=== PATIENT | female | born 1980 | race Caucasian/White ===

== ENCOUNTER 2018-11-21 09:40 | Day surgery (SDC) | payer MEDICAID ==
[~2018-11-21] VITALS: Ht 167.6 cm; Wt 63.5 kg
[~2018-11-21 09:40] MED LIST changes: +CEFOXITIN SODIUM 2 G in DEXT 5% WATER 100 ML IV STA; -DEXAMETHASONE 4MG/ML 1ML VIAL ONE; -FENTANYL CITRATE/PF 50MCG/ML 2ML VIAL ONE; -GLYCOPYRROLATE 0.2 MG/ML 2ML VIAL ONE; -HYDROMORPHONE HCL/PF 2MG/ML (OR) ONE; -KETOROLAC 30MG/ML VIAL ONE; +LACTATED RINGERS 1,000 ML IV SCH; -MIDAZOLAM HCL 2 MG/2 ML VIAL ONE; -ONDANSETRON HCL 4MG/2ML INJ ONE; -PROPOFOL 200MG/20ML VIAL IV ONE; -ROCURONIUM BROMIDE 10MG/ML VIAL 5ML IV ONE
[2018-11-21] MEDS ORDERED: LIDOCAINE HCL 1% 20ML VIAL (Pyxis) INJ ONE (10:25)
[2018-11-21] MEDS ORDERED: NORMAL SALINE 0.9% 10 ML SYR ONE (10:25)
[2018-11-21] MEDS ORDERED: BUPIVACAINE HCL/PF 0.5% (5MG/ML) 10ML ONE (10:25)
[2018-11-21] MEDS ORDERED: BACITRACIN 50,000 UNITS/VIAL ONE (10:26)
[2018-11-21 10:44] LABS: CLARITY URINE CLEAR (CLEAR); COLOR URINE YELLOW (YELLOW); KETONES URINE NEGATIVE (NEGATIVE); LEUKOCYTE ESTERASE URINE NEGATIVE (NEGATIVE); NITRITE URINE NEGATIVE (NEGATIVE); OCCULT BLOOD URINE NEGATIVE (NEGATIVE); PH URINE 7.5 (4.5-8.0); PROTEIN URINE NEGATIVE (NEGATIVE); SPECIFIC GRAVITY URINE 1.009 (1.005-1.030); UROBILINOGEN URINE 0.2 E.U./dL (0.2-1.0)
[2018-11-21 10:46] LABS: UCG SCREEN NEGATIVE
[2018-11-21 10:57] LABS: BASOPHILS % 0.3 % (0.0-2.0); EOSINOPHILS % 0.4 % (0.0-5.0); HEMATOCRIT. 37.7 % (36.0-48.0); HEMOGLOBIN. 12.4 g/dL (12.0-16.0); LYMPHOCYTES % 23.9 % (20.0-50.0); MEAN CORPUSCULAR HEMOGLOBIN 29.9 pg (28.0-32.0); MEAN CORPUSCULAR VOLUME 90.9 fL (81.0-99.0); MEAN PLATELET VOLUME 9.5 fl (7.4-10.4); MONOCYTES % 6.1 % (2.0-8.0); NEUTROPHILS % 69.3 % (40.0-76.0); PLATELET 251 x1000/uL (130-400); RED BLOOD CELL COUNT 4.14 mill/uL (4.2-5.4); RED CELL DISTRIBUTION WIDTH 15.6 % (11.6-14.6)
[2018-11-21 11:03] LABS: PARTIAL THROMBOPLASTIN TIME 26.6 sec (23.4-31.0); PROTHROMBIN TIME 10.3 sec (9.1-11.1)
[2018-11-21 11:05] LABS: CHLORIDE 107 mEq/L (98-107)
[2018-11-21] MEDS ORDERED: METHYLENE BLUE 50 MG/10 ML AMP IV ONE (12:48)
[2018-11-21] MEDS ORDERED: HYDROMORPHONE HCL/PF 2MG/ML CPJ IV PRN (13:00)
[2018-11-21] MEDS ORDERED: ONDANSETRON HCL 4MG/2ML INJ IV PRN (13:00)
[2018-11-21] MEDS ORDERED: FENTANYL CITRATE/PF 50MCG/ML 2ML VIAL IV PRN (13:00)
[2018-11-21] MEDS ORDERED: MEPERIDINE HCL/PF 25MG/ML CPJ IV PRN (13:00)
[2018-11-21] MEDS ORDERED: SKIN ADHESIVE 0.7 GM EA TOP ONE (13:26)
[2018-11-21 15:34] VITALS: BP 139/91
== END 2018-11-21 17:20 | disposition home or self-care (01) ==
LOC: OR 09:40
PROVIDERS: ATTEND Specialist
DX: N80.6 Endometriosis in cutaneous scar (principal); Z98.51 Tubal ligation status
CPT/HCPCS: 22900; 36415; 80048; 81003; 81025; 85025; 85610; 85730; 88305; G0168; J0694; J3010; J3490; J7060; Q9968

== ENCOUNTER → 2018-11-21 | Emergency (ER) | payer MEDICAID ==
[~2018-11-21] MED LIST: DEXAMETHASONE 4MG/ML 1ML VIAL ONE; FENTANYL CITRATE/PF 50MCG/ML 2ML VIAL ONE; GLYCOPYRROLATE 0.2 MG/ML 2ML VIAL ONE; HYDROMORPHONE HCL/PF 2MG/ML (OR) ONE; IBUP-2030 PO; KETOROLAC 30MG/ML VIAL ONE; MIDAZOLAM HCL 2 MG/2 ML VIAL ONE; ONDANSETRON HCL 4MG/2ML INJ ONE; PROPOFOL 200MG/20ML VIAL IV ONE; ROCURONIUM BROMIDE 10MG/ML VIAL 5ML IV ONE
== END | disposition home or self-care (01) ==
LOC: ER 08:29
DX: Z53.21 Procedure and treatment not carried out due to patient leaving prior to being seen by health care provider (principal)
CPT/HCPCS: J1100; J1170; J1885; J2250; J2405; J2704; J3010; J3490